=== PATIENT | male | born 2000 | race American Indian/Alaskan Native ===

== ENCOUNTER 2021-05-10 00:52 | Emergency (ER) | payer SELFPAY ==
[2021-05-10] MEDS ORDERED: LIDOCAINE-MPF (1%) 10 MG/1 ML VIAL 5 ML INFILTRATI ONE (01:36)
[2021-05-10] MEDS ORDERED: IBUPROFEN 600 MG TAB PO ONE (01:36)
[2021-05-10] MEDS ORDERED: TETANUS,DIPH,PERTUSS(ACELL) VACCINE 0.5 ML SYRINGE IM ONE (01:36)
[2021-05-10 01:39] VITALS: BP 158/95
--- NOTE | 2021-05-10 03:07 | Emergency Department Report ---
ED Upper Extremity Inj HPI - General Chief Complaint: Wound/Laceration Stated Complaint: LT HAND LAC Source: patient Mode of arrival: Ambulatory Limitations: No Limitations - History of Present Illness Initial Comments: Patient is a 20-year-old -[place] male with no past medical history presents to the ED with complaint of acute onset persistent painful left thumb laceration with bleeding after he accidentally caught a knife that was falling off a table and the tip of the knife ended up cutting his left palm about 2 hours ago at work. Patient states that he is not up-to-date with his tetanus vaccinations. Patient denies numbness and tingling or weakness of left hand, dizziness, syncope, fall, chest pain or shortness of breath, fever and chills. MD Complaint: Injury to:: left, hand (left palm laceration) -: Sudden, hour(s) (2) Other Extremity Injury: Hand: Left (Left palm laceration with pain) Other Injuries: none Handedness: right Place: work Severity scale (0 -10): 7 Improves With: none Worsens With: movement of extremity Context: laceration (Left palm laceration with pain) Associated Symptoms: denies other symptoms. denies: weakness, numbness, neck pain, suspects foreign body, nausea/vomiting, heard/felt popping sensat - Related Data Previous Rx's Medication Instructions Recorded Last Taken Type Ibuprofen [Motrin] 800 mg PO Q8HR PRN #24 tablet 05/10/21 Unknown Rx cephALEXin [Keflex] 500 mg PO Q12HR #20 cap 05/10/21 Unknown Rx Allergies Allergy/AdvReac Type Severity Reaction Status Date / Time No Known Allergies Allergy Verified 05/10/21 02:04 ED Review of Systems ROS: Stated complaint: LT HAND LAC Other details as noted in HPI Constitutional: denies: chills, fever Eyes: denies: eye pain, eye discharge, vision change ENT: denies: ear pain, throat pain Respiratory: denies: cough, shortness of breath, wheezing Cardiovascular: denies: chest pain, palpitations Endocrine: no symptoms reported Gastrointestinal: denies: abdominal pain, nausea, diarrhea Genitourinary: frequency. denies: urgency, dysuria Musculoskeletal: arthralgia (Left hand pain due to a bleeding left palm laceration). denies: back pain, joint swelling Skin: other (Bleeding left palm laceration with pain). denies: rash, lesions Neurological: denies: headache, weakness, paresthesias Psychiatric: denies: anxiety, depression Hematological/Lymphatic: denies: easy bleeding, easy bruising ED Past Medical Hx - Past Medical History Previous Medical History?: No - Surgical History Past Surgical History?: No - Social History Smoking Status: Never Smoker Substance Use Type: None - Medications Home Medications: Home Medications Medication Instructions Recorded Confirmed Last Taken Type Ibuprofen [Motrin] 800 mg PO Q8HR PRN #24 tablet 05/10/21 Unknown Rx cephALEXin [Keflex] 500 mg PO Q12HR #20 cap 05/10/21 Unknown Rx ED Physical Exam - General Limitations: No Limitations General appearance: alert, in no apparent distress - Head Head exam: Present: atraumatic, normocephalic, normal inspection - Eye Eye exam: Present: normal appearance, PERRL, EOMI Pupils: Present: normal accommodation - ENT ENT exam: Present: normal exam, normal orophraynx, mucous membranes moist, TM's normal bilaterally, normal external ear exam - Neck Neck exam: Present: normal inspection, full ROM - Respiratory Respiratory exam: Present: normal lung sounds bilaterally. Absent: respiratory distress, wheezes, rales, chest wall tenderness, accessory muscle use, decreased breath sounds, prolonged expiratory - Cardiovascular Cardiovascular Exam: Present: normal rhythm, tachycardia, normal heart sounds. Absent: systolic murmur, diastolic murmur, rubs, gallop - GI/Abdominal GI/Abdominal exam: Present: soft, normal bowel sounds. Absent: tenderness, guarding, rebound, hyperactive bowel sounds, hypoactive bowel sounds, organomegaly - Extremities Exam Extremities exam: Present: normal inspection, full ROM, tenderness (Palpable left palm tenderness due to a bleeding 3 cm laceration) - Back Exam Back exam: Present: normal inspection, full ROM. Absent: tenderness, CVA tenderness (R), CVA tenderness (L), muscle spasm, paraspinal tenderness, vertebral tenderness - Neurological Exam Neurological exam: Present: alert, oriented X3, CN II-XII intact, normal gait, reflexes normal - Psychiatric Psychiatric exam: Present: normal affect, normal mood - Skin Skin exam: Present: warm, dry, intact, normal color, other (Bleeding 3 cm laceration on left palm with localized tenderness). Absent: rash ED Course Vital Signs 05/10/21 05/10/21 05/10/21 01:38 02:19 03:19 Temperature 98.5 F Pulse Rate 103 H Respiratory 18 18 18 Rate Blood Pressure 158/95 O2 Sat by Pulse 98 Oximetry 05/10/21 03:20 Temperature Pulse Rate 90 Respiratory 18 Rate Blood Pressure O2 Sat by Pulse 99 Oximetry - Laceration /Wound Repair Left Palm Hand Wound Location: upper extremity (Left palm laceration) Wound Length (cm): 3 Wound's Depth, Shape: superficial, irregular Wound Explored: contaminated Irrigated w/ Saline (ccs): 200 Betadine Prep?: Yes Anesthesia: 1% Lidocaine Volume Anesthetic (ccs): 5 Wound Debrided: extensive Wound Repaired With: sutures Suture Size/Type: 4:0, proline Number of Sutures: 6 Layer Closure?: No Sterile Dressing Applied?: Yes Progress: The wound was cleaned thoroughly with normal saline and Betadine solution. Local anesthetic solution 1% lidocaine was infiltrated around the wound for local anesthesia. When anesthesia was fully achieved, the wound was sutured per protocol and the patient tolerated procedure well. The wound was then dressed appropriately and the patient was discharged home on pain medications and prophylactic antibiotics. Patient was advised return to the ED immediately if symptoms get worse, otherwise follow-up with his primary care physician in 7 to 10 days for reevaluation. Patient was also advised to return to the ED or to his primary care physician in 12 to 14 days for suture removal. ED Medical Decision Making - Medical Decision Making This is a 20-year-old -[place] male with no past medical history presents to the ED with complaint of acute onset persistent painful left thumb laceration with bleeding after he accidentally caught a knife that was falling off a table and the tip of the knife ended up cutting his left palm about 2 hours ago at work. Patient states that he is not up-to-date with his tetanus vaccinations. In the ED, patient is alert and oriented x3 and is not in distress. Patient received pain medication in the ED and also given booster tetanus vaccinations.The bleeding laceration wound was cleaned thoroughly with normal saline and Betadine solution. Local anesthetic solution 1% lidocaine was infiltrated around the wound for local anesthesia. When anesthesia was fully achieved, the wound was sutured per protocol and the patient tolerated procedure well. The wound was then dressed appropriately and the patient was discharged home on pain medications and prophylactic antibiotics. Patient was advised return to the ED immediately if symptoms get worse, otherwise follow-up with his primary care physician in 7 to 10 days for reevaluation. Patient was also advised to return to the ED or to his primary care physician in 12 to 14 days for suture removal. - Differential Diagnosis Laceration; puncture wound; left hand injury Critical care attestation.: If time is entered above; I have spent that time in minutes in the direct care of this critically ill patient, excluding procedure time. ED Disposition Clinical Impression: Laceration of left palm without complication Qualifiers: Encounter type: initial encounter Qualified Code(s): S61.412A - Laceration without foreign body of left hand, initial encounter Puncture wound of left palm without complication Qualifiers: Encounter type: initial encounter Qualified Code(s): S61.432A - Puncture wound without foreign body of left hand, initial encounter Disposition: TO HOME OR SELFCARE Is pt being admited?: No Does the pt Need Aspirin: No Condition: Stable Instructions: Puncture Wound, [id number], Laceration Care, Adult, [id number], Sutured Wound Care, [id number] Additional Instructions: Take medication with food, drink plenty of fluids and follow-up with your primary care physician in 7 to 10 days for reevaluation. Return to the ED immediately if symptoms get worse. Otherwise return to the ED or to your primary care physician in 12 to 14 days for suture removal. Prescriptions: cephALEXin [Keflex] 500 mg PO Q12HR #20 cap Ibuprofen [Motrin] 800 mg PO Q8HR PRN #24 tablet PRN Reason: Pain , Severe (7-10) Referrals: [facility] [Provider Group] - 3-5 Days Time of Disposition: 03:12 Print Language: BELARUSIAN
== END 2021-05-10 03:20 | disposition home or self-care (01) ==
LOC: ED 00:52
DX: S61.412A Laceration without foreign body of left hand, initial encounter (principal); S61.432A Puncture wound without foreign body of left hand, initial encounter; Z79.899 Other long term (current) drug therapy; W26.0XXA Contact with knife, initial encounter; Y93.89 Activity, other specified; Y92.89 Other specified places as the place of occurrence of the external cause; Y99.8 Other external cause status
CPT/HCPCS: 90471; 90715; 99282